=== PATIENT | male | born 1975 | race Caucasian/White ===

== ENCOUNTER 2020-08-25 21:16 | Emergency (ER) | payer SELFPAY ==
[~2020-08-25] VITALS: Ht 172.7 cm; Wt 102.0 kg
[2020-08-25 23:03] LABS: BASO # 0.1 x10^3/uL (0.0-0.2); BASO % 1 % (0-3); EOS # 0.3 x10^3/uL (0.0-0.7); EOS % 4 % (0-3); HEMATOCRIT 44.4 % (39.0-53.0); HEMOGLOBIN 15.6 g/dL (13.0-17.5); LYMPH # 2.9 x10^3/uL (1.0-4.8); LYMPH % 37 % (24-48); MEAN CORPUSCULAR HEMOGLOBIN 32 pg (25-35); MEAN CORPUSCULAR HGB CONC 35 g/dL (31-37); MEAN CORPUSCULAR VOLUME 92 fL (79-100); MONO # 0.6 x10^3/uL (0.0-1.1); MONO % 8 % (0-9); NEUT % 51 % (31-73); PLATELET COUNT 272 x10^3/uL (140-400); RED BLOOD COUNT 4.82 x10^6/uL (4.30-5.70); RED CELL DISTRIBUTION WIDTH 13.8 % (11.5-14.5); WHITE BLOOD COUNT 7.9 x10^3/uL (4.0-11.0)
[2020-08-25 23:14] LABS: GFR 80.8; POTASSIUM 4.2 mmol/L (3.5-5.1)
--- NOTE | 2020-08-25 23:18 | PHYS DOC ---
Past Medical History Past Medical History: No Pertinent History Past Surgical History: No Surgical History Smoking Status: Current Every Day Smoker Alcohol Use: Occasionally General Adult EDM: Chief Complaint: SHORTNESS OF BREATH HPI: HPI: Patient is a 45 year old male with no past medical history presents with a chief complaint of shortness of breath. Patient states shortness of breath has been on and off for the past several years. Over the last few nights patient states he feels he cannot catch his breath. Patient states he gets in bed-- cant breath so hegoes out side to try to catch his breath. Patient states he feels like he is suffocating. Due to SOB patient states he has been unable to sleep. Patient denies any associated chest pain. Review of Systems: Review of Systems: Constitutional: Denies fever or chills. [] Eyes: Denies change in visual acuity. [] HENT: Denies nasal congestion or sore throat. [] Respiratory: positive shortness of breath. [denies cough] Cardiovascular: Denies chest pain or edema. [] GI: Denies abdominal pain, nausea, vomiting, bloody stools or diarrhea. [] : Denies dysuria. [] Musculoskeletal: Denies back pain or joint pain. [] Integument: Denies rash. [] Neurologic: Denies headache, focal weakness or sensory changes. [] Endocrine: Denies polyuria or polydipsia. [] Lymphatic: Denies swollen glands. [] Psychiatric: Denies depression positive anxiety. [] Heart Score: C/O Chest Pain: N/A Risk Factors: Risk Factors: DM, Current or recent (<one month) smoker, HTN, HLP, family history of CAD, obesity. Risk Scores: Score 0 - 3: 2.5% MACE over next 6 weeks - Discharge Home Score 4 - 6: 20.3% MACE over next 6 weeks - Admit for Clinical Observation Score 7 - 10: 72.7% MACE over next 6 weeks - Early Invasive Strategies Allergies: Allergies: Allergies Coded Allergies Type Severity Reaction Last Updated Verified No Known Drug Allergies 08/25/20 No Physical Exam: PE: General: alert, no acute distress. Skin: warm, dry and intact. Head:: Normocephalic, atraumatic. Neck: Trachea midline. Eyes: EOMI, Normal conjunctiva, No drainage CARDIOVASCULAR: Regular rate and rhythm RESPIRATORY: No respiratory distress, lungs clear bilateral Back: Full range of motion. MUSCULOSKELETAL: Full range of motion of bilateral upper and lower extremities. GASTROINTESTINAL: Abdomen soft without rebound or guarding. NEUROLOGICAL: Alert and noted to person, place and time. No neurological deficits observed Psychiatric: Cooperative. Normal judgment Current Patient Data: Vital Signs: Vital Signs Date Time Temp Pulse Resp B/P (MAP) Pulse Ox O2 Delivery O2 Flow Rate FiO2 08/25/20 22:48 76 20 132/83 (99) 99 Room Air 08/25/20 21:56 97.8 97.8 EKG: EKG: [] EKG performed at [address] elevation no ST depression no acute ID Radiology/Procedures: Radiology/Procedures: [] Impression: INDICATION: Shortness of breath TECHNIQUE: Frontal view of the chest Comparisons: None FINDINGS: The cardiomediastinal silhouette and pulmonary vessels are within normal limits. The lung and pleural spaces are clear. IMPRESSION: No acute cardiopulmonary process. Course & Med Decision Making: Course & Med Decision Making Pertinent Labs and Imaging studies reviewed. (See chart for details) [] Patient was evaluated for chief complaint. Work-up consisted of laboratory analysis EKG and radiologic imaging. Results reviewed and discussed with patient. Shalini Disclaimer: Shalini Disclaimer: This electronic medical record was generated, in whole or in part, using a voice recognition dictation system. Departure Departure Impression: Primary Impression: Dyspnea Additional Impression: Anxiety Disposition: 01 HOME / SELF CARE / HOMELESS Condition: STABLE Patient Instructions: Anxiety and Panic Attacks, Shortness of Breath Scripts Alprazolam (XANAX) 0.5 Mg Tablet 1 TAB PO DAILY, #10 TAB Prov: IGNACIA MCGOWAN I DO 08/26/20 Albuterol Sulfate (Proair Hfa) 8.5 Gm Hfa.aer.ad 1 PUFF INH PRN Q6HRS PRN for SHORTNESS OF BREATH, #1 EACH Prov: IGNACIA MCGOWAN I DO 08/25/20 IGNACIA MCGOWAN DO August 25, 2020 23:18
[2020-08-25 23:22] LABS: ALBUMIN/GLOBULIN RATIO 1.2 (1.0-1.7); TOTAL BILIRUBIN 0.3 mg/dL (0.2-1.0); TOTAL PROTEIN 7.3 g/dL (6.4-8.2)
--- NOTE | 2020-08-25 23:29 | RAD ---
Exam: Chest one view INDICATION: Shortness of breath TECHNIQUE: Frontal view of the chest Comparisons: None FINDINGS: The cardiomediastinal silhouette and pulmonary vessels are within normal limits. The lung and pleural spaces are clear. IMPRESSION: No acute cardiopulmonary process. Electronically signed by: Chas Schneider MD (08/25/2020 11:26 PM) DANIEL
[2020-08-25] MEDS ORDERED: ALBUTEROL SULFATE 2.5 MG/3 ML NEBU. NEB ONE (23:30)
[2020-08-25] MEDS ORDERED: IV NORMAL SALINE 1000ML BAG 1,000 ML IV ONE (23:30)
[2020-08-25] MEDS ORDERED: ALBU2.5V8 INH (23:45)
--- NOTE | 2020-08-25 23:59 | EKG ---
[facility] [address] [place] [address] Test Date: 2020-08-25 Test Time: 22:33:37 Pat Name: GERRY LEAVITT Department: Room: Gender: M Line Palletizer: Sj : 1975 Requested By: IGNACIA MCGOWAN Order Number: [id number] Reading MD: Measurements Intervals [place] Rate: 85 P: [place]: QRS: -20 QRSD: 86 T: 54 QT: 340 QTc: 410 Interpretive Statements ATRIAL FLUTTER LEFTWARD AXIS ABNORMAL ECG RI6.01 No previous ECG available for comparison
[2020-08-26] MEDS ORDERED: ALPR0.5T PO (00:03)
[2020-08-26 00:10] VITALS: BP 123/80
== END 2020-08-26 00:14 | disposition home or self-care (01) ==
LOC: ER 21:16
DX: R06.02 Shortness of breath (principal); F41.9 Anxiety disorder, unspecified; F17.200 Nicotine dependence, unspecified, uncomplicated
CPT/HCPCS: 36415; 71045; 80053; 83880; 85025; 93005; 94640; 99285; J7613